=== PATIENT | female | born 1960 | race African-American/Black ===

== ENCOUNTER → 2017-08-09 | Outpatient (CLI) | payer OTHER ==
--- NOTE | 2017-08-09 11:56 | Diagnostic Imaging Report ---
PROCEDURE:US LIVER COMPARISON:None. INDICATIONS:Liver Lesions, history of breast cancer TECHNIQUE: Tracy-scale and color doppler transverse and longitudinal images of the right upper quadrant of the abdomen were obtained. FINDINGS: Liver: 14.1 cm in length in the right midclavicular line. Normal hepatic parenchymal echogenicity. Multiple round or irregularly marginated anechoic structures are identified scattered throughout the right and left lobes. One of the lesions within the left lobe has internal septation and measures 1.4 x 1.2 x 1.2 cm. The largest lesion in the right lobe is irregularly marginated though contains no septation or nodular component and measures 3 x 3.8 x 3.5 cm. Main portal vein: 0.9 cm in caliber. Hepatopedal flow. Gallbladder: Unremarkable sonographic appearance without shadowing calculus, wall thickening, or pericholecystic fluid. Common Bile Duct: 0.5 cm in caliber. Sonographic Jaramillo's sign: Reported as negative. Right kidney: 9.8 cm in length. Normal renal cortical echogenicity. No solid masses or hydronephrosis. 1.7 x 1.8 x 1.6 cm simple cyst in the inferolateral aspect of the right kidney. Pancreas: The visualized portions are unremarkable. Inferior vena cava: Patent Aorta: Non-aneurysmal Ascites: None in the right upper quadrant of the abdomen. CONCLUSION: Multiple hepatic cysts, with the largest right-lobar lesion somewhat irregularly marginated, and the largest left lobar lesion with minimally complex sonographic characteristics. In the setting of prior breast cancer, and in the absence of prior cross-sectional imaging for comparison purposes, further characterization with MRI of the abdomen with and without contrast (liver mass protocol) is suggested. Dictated by: Jose Moreno M.D. on 08/09/2017 at 11:56 Electronically approved by: Jose Moreno M.D. on 08/09/2017 at 11:56
== END ==
LOC: US 10:54
PROVIDERS: ATTEND Radiology Radiation Oncology
DX: K76.9 Liver disease, unspecified (principal); Z85.3 Personal history of malignant neoplasm of breast
CPT/HCPCS: 76705

== ENCOUNTER → 2017-08-30 | Outpatient (CLI) | payer OTHER ==
[~2017-08-30] MED LIST: GADOBENATE DIMEGLUMINE 1 ML IV ONE
--- NOTE | 2017-09-02 11:50 | Diagnostic Imaging Report ---
MRI abdomen CPT code: 13805 Indication: Liver masses, history of breast cancer Technique: Axial T1 nonfat sat in and out of phase, axial T2 fat sat, coronal T2 nonfat sat, axial DWI and ADC MR images of the abdomen were obtained before and after the administration of 14 cc of gadolinium. Axial T1 fat sat GRE dynamic images in precontrast, arterial, venous and delayed phases were obtained. Comparison: Abdominal ultrasound 08/09/2017 Findings: Images are significantly compromised due to motion degradation. Liver: Grossly normal signal. Multiple low T1 and T2 parenchymal masses measure up to 3.6 x 3.9 x 3.0 cm. After contrast administration, the majority demonstrate no evidence of enhancement. The largest lesion has several septations at its inferior aspect. There is one lesion in the dome of segment 7 that has increased signal on T1 and T2-weighted sequence (series 10, image 3 and series 6, image 2) that measures 1.4 x 1.1 cm. It is not clear identified on the dynamic post contrast sequence. Subtraction sequence of the same area demonstrates no evidence of enhancement. Gallbladder: Present. No evidence of gallstone or gallbladder wall thickening. Biliary tree: Normal Pancreas: Grossly normal signal. No mass or ductal dilatation. Spleen: Normal T1 and T2 signal without mass. Adrenal glands: No mass Kidneys: No hydronephrosis. Multiple cysts are present measuring up to 1.7 cm. No enhancing renal lesions. Lymph nodes: No lymphadenopathy Bowel: The stomach is distended with fluid. Small bowel and large bowel are normal in diameter with normal wall thickness. Survey images of the pelvis demonstrate a unilocular cystic mass in the left pelvis measuring 8.0 x 6.0 cm. It has high T1 and high T2 signal. There are no septations or nodules in the visualized portion. It is not visible on the dynamic post contrast sequence due to slice selection. Delayed post gadolinium sequence demonstrates a unilocular appearance. The uterus is present and normal in morphology with a few nabothian cysts in the cervix. Bones: Normal marrow signal. No focal osseous lesions. IMPRESSION: 1. Motion degraded exam. 2. Multiple hepatic lesions are suggestive of cysts, the largest of which appears to be septated. However, confirmation should be made with contrast enhanced CT dedicated to the liver. 3. Unilocular cystic mass in the left pelvis with increased T1 and T2 signal is suggestive of an endometrioma. Recommend further characterization with pelvic ultrasound. 4. Bilateral renal cysts. Signed by: Dr. Petar Linda MD on 09/02/2017 11:47 AM
== END ==
LOC: MRI 14:07
PROVIDERS: ATTEND Radiology Radiation Oncology
DX: R16.0 Hepatomegaly, not elsewhere classified (principal); Z85.3 Personal history of malignant neoplasm of breast
CPT/HCPCS: 74183

== ENCOUNTER → 2018-11-18 | Outpatient (CLI) | payer SELFPAY ==
--- NOTE | 2018-11-18 15:37 | Diagnostic Imaging Report ---
EXAM: Focused Soft Tissue Ultrasound Evaluation of left axilla INDICATION: ^[id number] ^[id number] ^MALIG NEOP OF UPPER OUTER QUAD LT FEMALE BREAST COMPARISON: None TECHNIQUE: Jones scale, color Doppler images of the left axilla were obtained. FINDINGS: Sonographic images of the left axilla in the area of clinical concern demonstrates a 3 x 2 x 3 mm hypoechoic cystic structure. No associated vascularity. IMPRESSION: Nonspecific soft tissue cystic structure with no associated vascularity is likely benign. Signed by: Audra Priest MD on 11/18/2018 3:34 PM
== END ==
LOC: US 11:27
PROVIDERS: ATTEND Internal Medicine Medical Oncology
DX: C50.412 Malignant neoplasm of upper-outer quadrant of left female breast (principal)
CPT/HCPCS: 76882